=== PATIENT | male | born 1980 | race Asian ===

== ENCOUNTER 2024-09-21 19:54 | Emergency (ER) | payer OTHER, SELFPAY ==
[2024-09-21 19:59] VITALS: BP 155/101
[2024-09-21 21:02] VITALS: BMI 33.7
[2024-09-21 21:04] VITALS: BP 152/83
[2024-09-21] MEDS: NORCO 5/325 1 TABLET PO (22:13)
--- NOTE | 2024-09-21 22:15 | ED.MUSCINJ ---
HPI-Injury
General
Chief Complaint: Musculo-Skeletal Complaint
Source: patient
Exam Limitations: none
Time Seen by Provider: 09/21/24 21:02
Nursing documentation reviewed up to this point in time: agreed with
History of Present Illness-Injury
Is this injury a work related problem?: No
Is pt an associate of [facility]?: No
Initial Injury comments:
Patient to ED with complaint of pain to left lateral neck and left shoulder. No report of injury, states he slept wrong. He had a similar presentation many years ago. No weakness in extremity. Pain is worse with movement. No chest
pain/pressure, SOB, n/v/d. [facility], xrays without concerning findigs. States he was given a muscle relaxant but it is not helping. Brought to ED by son for eval
Past History
Past History
ED Past Medical History: HTN, Hypercholesterolemia and NIDDM
ED Past Surgical History: None
Review of Systems
Review of Systems
Allergies reviewed?: Yes
All Other Systems: ROS reviewed and negative except as documented in HPI and ROS
Constitutional: Reports no symptoms
EENT: Reports no symptoms
Respiratory: Reports no symptoms
Cardiac: Reports no symptoms
ABD/GI: Reports no symptoms
Musculoskeletal: Reports neck pain (left lat neck pain radiating to top of left shoulder)
Skin: Reports no symptoms
Neurological: Reports no symptoms
Psychiatric: Reports no symptoms
Musculoskeletal Injury Exam
Musculoskeletal Injury Exam
Left Lateral Neck:
Pain with Movement?: Moderate
Tender to palpation?: Mild
External deformity and angulation?: None
Joint effusion?: None
Contusion?: None
Hematoma-local bleeding into tissue?: None
Strain- Sprain- Tear (Connective tissue injury)?: Mild
Crepitus with movement?: No
Joint instability?: No
Malalignment/deformity?: No
Range of motion: Full
Distal skin color and temperature: normal-warm & good color
Capillary Refill: normal
Normal distal neurovascular exam?: Yes
Top of left Shoulder:
Pain with Movement?: Moderate
Tender to palpation?: Mild
Soft tissue swelling?: None
External deformity and angulation?: None
Joint effusion?: None
Contusion?: None
Hematoma-local bleeding into tissue?: None
Strain- Sprain- Tear (Connective tissue injury)?: Mild
Crepitus with movement?: No
Joint instability?: No
Malalignment/deformity?: No
Range of motion: Limited
Distal skin color and temperature: normal-warm & good color
Capillary Refill: normal
Normal distal neurovascular exam?: Yes
Peripheral Pulses: radial (left): 3+
Phy Exam
General Physical Exam
General Presentation: well appearing and no apparent distress
General age: appears stated age
General Skin: warm and dry
General Habitus: normal
General Mental: alert
Cardiovascular Exam
Cardiovascular Exam: regular rate/rhythm and other (Denies any cp/pressure, sob)
Pulmonary Exam
Pulmonary Exam: no respiratory distress and chest non tender
Musculoskeletal Exam
Musculoskeletal Exam: neuro vasc intact and other (Left lateral neck pain radiating to top of left shoulder. Worse wtih movement. NO redness or swelling. LUE neurovasc. intact)
Skin Exam
Skin Exam: normal color, warm/dry and no rash
Psychiatric Exam
Psychiatric Exam: normal mood/affect
Injury Course
Orders/Labs/Results
Orders:
Orders
09/21/24 20:04
EKG with chest pain [ECG as needed] As Directed
ECG as needed for:: Chest Pain
09/21/24 21:33
Hydrocodone 5/APAP 325 [Tibbie 5/325] 1 tablet PO NOW STA
09/21/24 21:41
Hydrocodone 5/APAP 325 [Tibbie 5/325] 1 tablet PO NOW STA
*Radiology
Radiology exam reviewed: radiology read reviewed
*Pulse Oximetry
Patient hypoxic: no
*Critical Care Note
Total Time (30-74mins, 75-104mins- exclusive of procedures): Not Applicable
ED Attending Note
-
Portions of this chart may have been created with voice recognition software.� Occasional wrong word or��sound alike� substitutions may have occurred due to the inherent limitations of voice recognition software.
Discharge Plan
Departure
Patient Disposition: Home (Routine Discharge)
Date of Disposition: 09/21/24
Time of Disposition: 21:34
Patient with high blood pressure during this ER visit?: No
Condition: Good
Covid-19: Not Applicable
Discharge Problem:
Musculoskeletal pain
Instructions: Ibuprofen, Using Cold for Pain, Shoulder pain
Prescriptions:
New
hydrocodone-acetaminophen 5-325 mg tablet
1 tab PO Q4H PRN (Reason: Pain) Qty: 10 0RF
Referrals:
Jemal Durán MD [Family Provider] -
Stanislaw Kidd MD [Active] - (Follow up if your symptoms do not improve over the next 5-7 days.)
Activity Restrictions/Additional Instructions:
No driving while taking narcotic pain medications.
Interventions
Interventions:
*Risk Screen - Suicide Last Done: 09/21/24 19:59
*General Assessment Last Done: 09/21/24 21:02
*Neglect/Abuse Screening Last Done: 09/21/24 19:59
*ED- Fall Risk Assessment Last Done: 09/21/24 21:02
*ED COVID-19 Vaccine History Last Done: 09/21/24 21:02
*Nursing Disposition Last Done: 09/21/24 22:14
ED-Musculoskeletal Assessment Last Done: 09/21/24 21:02
Discharge Date and Time
Discharge Date/Time: 09/21/24 22:14
Print Language: ESTONIAN
== END 2024-09-21 22:14 | disposition home or self-care (01) ==
LOC: EMR 19:54
PROVIDERS: EMERGENCY PHYSICIAN Student in an Organized Health Care Education/Training Program; FAMILY PHYSICIAN Internal Medicine
DX: M79.18 Myalgia, other site (principal); M54.2 Cervicalgia; M25.512 Pain in left shoulder; E11.9 Type 2 diabetes mellitus without complications; E78.00 Pure hypercholesterolemia, unspecified; I10 Essential (primary) hypertension; Z79.84 Long term (current) use of oral hypoglycemic drugs
CPT/HCPCS: 99283; 93005